=== PATIENT | male | born 1990 | race African-American/Black ===

== ENCOUNTER 2020-07-04 09:28 | Emergency (ER) | payer OTHER ==
[~2020-07-04] VITALS: Ht 172.7 cm; Wt 100.0 kg
[2020-07-04] MEDS ORDERED: LORAZEPAM 0.5MG TABLET PO ONE (10:00)
[2020-07-04 10:01] LABS: BASOPHILS % 0.5 % (0.0-2.0); EOSINOPHILS % 1.8 % (0.0-5.0); HEMATOCRIT. 44.6 % (42.0-52.0); HEMOGLOBIN. 15.6 g/dL (14.0-18.0); LYMPHOCYTES % 18.2 % (20.0-50.0); MEAN CORPUSCULAR HEMOGLOBIN 30.7 pg (28.0-32.0); MEAN CORPUSCULAR VOLUME 87.6 fL (80.0-94.0); MEAN PLATELET VOLUME 7.3 fl (7.4-10.4); MONOCYTES % 10.4 % (2.0-8.0); NEUTROPHILS % 69.1 % (40.0-76.0); PLATELET 288 x1000/uL (130-400); RED BLOOD CELL COUNT 5.09 mill/uL (4.7-6.1); RED CELL DISTRIBUTION WIDTH 12.2 % (11.6-14.6)
[2020-07-04 10:08] LABS: CHLORIDE 109 mEq/L (98-107)
[2020-07-04 12:42] VITALS: BP 117/84
== END 2020-07-04 12:43 | disposition home or self-care (01) ==
LOC: ER 09:47
DX: F41.1 Generalized anxiety disorder (principal)
CPT/HCPCS: 36415; 71045; 80053; 85025; 93005; 99285